=== PATIENT | male | born 1955 | race Caucasian/White ===

== ENCOUNTER 2017-04-11 17:17 | Emergency (ER) | payer OTHER ==
--- NOTE | 2017-04-11 17:34 | EDPHY ---
H & P Stated Complaint: sharp "picky" cp x 2 weeks Time Seen by Provider: 04/11/17 17:33 HPI/ROS: CHIEF COMPLAINT: Intermittent chest pain x2 weeks HISTORY OF PRESENT ILLNESS: The patient presents to the ED with intermittent chest pain for 2 weeks. Patient reports a sharp left-sided chest pain on his left anterior rib at a specific spot. The patient denies radiation of the pain to the neck, back, arm or abdomen. The patient is currently asymptomatic. The patient's symptoms are not precipitated by exertion. He denies any asymmetric calf pain or swelling. He currently is symptom free. The patient does have a history of hypertension. He has remote history of treated osteosarcoma. The patient denies any complaints of fever, cough or congestion. REVIEW OF SYSTEMS: A comprehensive 10 point review of systems is otherwise negative aside from elements mentioned in the history of present illness. Source: Patient - Personal History Current Tetanus/Diphtheria Vaccine: Yes Tetanus Vaccine Date: May 16 2014 - Medical/Surgical History Hx Asthma: No Hx Chronic Respiratory Disease: No Hx Diabetes: No Hx Cardiac Disease: No Hx Renal Disease: No Hx Cirrhosis: No Hx Alcoholism: No Hx HIV/AIDS: No Hx Splenectomy or Spleen Trauma: No Other PMH: LLE amputation, Bone CA, HTN - Social History Smoking Status: Never smoked - Physical Exam Exam: General Appearance: Alert, no distress Head: Atraumatic Eyes: Pupils equal, round, reactive ENT, Mouth: No hemotympanum, no oral trauma Neck: Nontender, trachea midline Respiratory: No chest wall tender, no subcutaneous air, lungs clear bilaterally Cardiovascular: Regular rate and rhythm Abdomen: Abdomen is soft and nontender, pelvis stable Skin: No lacerations, No abrasion Back: No midline T/L/S pain Extremities: 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 Neurological: A&Ox3, normal motor function, normal sensory exam Constitutional: Initial Vital Signs Temperature (C) 36.7 C 04/11/17 17:19 Heart Rate 78 04/11/17 17:19 Respiratory Rate 22 H 04/11/17 17:19 Blood Pressure 186/94 H 04/11/17 17:19 O2 Sat (%) 92 04/11/17 17:19 O2 Delivery Mode Room Air O2 (L/minute) 3 Allergies/Adverse Reactions: TAPE Allergy (Uncoded 04/11/17 17:18) Home Medications: Medication Instructions Recorded CRESTOR 01/11/10 Lisinopril 05/16/14 Medical Decision Making - Diagnostics EKG Interpretation: EKG: Complete interpretation has been separately recorded in the tribr archive. Summary impression: Sinus rhythm, no ST segment elevation or depression Imaging Results: Imaging Impressions Chest X-Ray 04/11/17 17:34 Impression: 1. Persistent Elevated left hemidiaphragm. 2. No definite pneumonia. 3. No pneumothorax. ED Course/Re-evaluation: The patient presents to the ED for evaluation of 2 weeks of intermittent sharp left-sided chest pain. The patient's symptoms typically lasts seconds at a time. They are nonexertional. The patient has no complaints of pleuritic chest pain or complaints of calf pain or swelling. The patient's EKG demonstrates no evidence of ischemia. His troponin is normal. The patient does have a history of hypertension is the sole risk factor for atherosclerosis. I have told the patient that my clinical suspicion for ACS is low. I have told him that I cannot fully eliminate the possibility of occult coronary artery disease. At this point time I do feel it would be reasonable to have him follow up with Cardiology in the next 3 days for consideration of stress test. I have told the patient to contact their office tomorrow to schedule a follow- up visit. I will have the patient begin a daily aspirin until cleared by Cardiology. The patient does understand return to the ED for or protracted chest pain, exertional chest pain, worsening symptoms or other concerns. Differential Diagnosis: Differential diagnosis considered includes musculoskeletal pain, pericarditis, myocarditis, acute coronary syndrome, rib fracture, pneumothorax - Data Points Laboratory Results: Laboratory Results 04/11/17 17:40 04/11/17 17:40 04/11/17 04/11/17 17:40 17:40 WBC 7.17 10^3/uL 10^3/uL (3.80-9.50) RBC 5.59 10^6/uL 10^6/uL (4.40-6.38) Hgb 16.3 g/dL g/dL (13.7-17.5) Hct 48.2 % % (40.0-51.0) MCV 86.2 fL fL (81.5-99.8) MCH 29.2 pg pg (27.9-34.1) MCHC 33.8 g/dL g/dL (32.4-36.7) RDW 13.0 % % (11.5-15.2) Plt Count 171 10^3/uL 10^3/uL (150-400) MPV 9.9 fL fL (8.7-11.7) Neut % (Auto) 50.2 % % (39.3-74.2) Lymph % (Auto) 37.1 % % (15.0-45.0) [place] % (Auto) 10.2 % % (4.5-13.0) Eos % (Auto) 1.8 % % (0.6-7.6) Baso % (Auto) 0.4 % % (0.3-1.7) Nucleat RBC Rel Count 0.0 % % (0.0-0.2) Absolute Neuts (auto) 3.60 10^3/uL 10^3/uL (1.70-6.50) Absolute Lymphs (auto) 2.66 10^3/uL 10^3/uL (1.00-3.00) Absolute Monos (auto) 0.73 10^3/uL 10^3/uL (0.30-0.80) Absolute Eos (auto) 0.13 10^3/uL 10^3/uL (0.03-0.40) Absolute Basos (auto) 0.03 10^3/uL 10^3/uL (0.02-0.10) Absolute Nucleated RBC 0.00 10^3/uL 10^3/uL (0-0.01) Immature Gran % 0.3 % % (0.0-1.1) Immature Gran # 0.02 10^3/uL 10^3/uL (0.00-0.10) Sodium 136 mEq/L mEq/L (134-144) Potassium 4.2 mEq/L mEq/L (3.5-5.2) Chloride 100 mEq/L mEq/L (97-110) Carbon Dioxide 25 mEq/l mEq/l (22-31) Anion Gap 11 mEq/L mEq/L (8-16) BUN 18 mg/dL mg/dL (7-23) Creatinine 1.0 mg/dL mg/dL (0.7-1.3) Estimated GFR > 60 Glucose 96 mg/dL mg/dL (70-100) Calcium 9.3 mg/dL mg/dL (8.5-10.4) Troponin I < 0.012 ng/mL ng/mL (0.000-0.034) Departure - Departure Disposition: Home, Routine, Self-Care Clinical Impression: Chest pain Condition: Good Instructions: Chest Pain (ED) Additional Instructions: 1. Based upon the testing done in the Emergency Department today we see no evidence of a heart attack. 2. We are unable to fully exclude coronary artery disease based upon the testing available in the Emergency Department. 3. For this reason, we would like you to be seen by cardiology for consideration of additional testing within the next 3 days. 4. Please contact the bridge instructor you have been referred to schedule this appointment as soon as possible. Their offices are typically open from 8:30am- 5pm M-F. 5. Please return to the Emergency Department immediately for any recurrent chest pain, difficulty breathing or other concerns. 6. Please begin taking a 81 mg aspirin a day until evaluated by Cardiology. Referrals: Harley Gregory MD [Primary Care Provider] - As per Instructions Neal Yusuf MD [Medical Doctor] - As per Instructions
--- NOTE | 2017-04-11 17:34 | CPEKG ---
Heart Rate: 73 RR Interval: 822 P-R Interval: 200 QRSD Interval: 86 QT Interval: 392 QTC Interval: 432 P [place]: 40 QRS [place]: 58 T Wave [place]: 57 EKG Severity - NORMAL ECG - EKG Impression: SINUS RHYTHM Electronically Signed By: Guru North 11-Apr-2017 17:59:51
[2017-04-11 17:56] LABS: % IMMATURE GRANULYOCYTES 0.3 % (0.0-1.1); ABSOLUTE IMMATURE GRANULOCYTES 0.02 10^3/uL (0.00-0.10); ADD DIFF? NO; ADD MORPH? NO; ADD SCAN? NO; ATYPICAL LYMPHOCYTE FLAG 10 (0-99); FRAGMENT RBC FLAG 0 (0-99); HEMATOCRIT 48.2 % (40.0-51.0); HEMOGLOBIN 16.3 g/dL (13.7-17.5); LEFT SHIFT FLG 0 (0-99); LIPEMIA HEMOLYSIS FLAG 90 (0-99); MEAN CELL HEMOGLOBIN 29.2 pg (27.9-34.1); MEAN CELL HEMOGLOBIN CONCENTR. 33.8 g/dL (32.4-36.7); MEAN CELL VOLUME 86.2 fL (81.5-99.8); MEAN PLATELET VOLUME 9.9 fL (8.7-11.7); PLATELET CLUMPS FLAG 20 (0-99); PLATELET COUNT 171 10^3/uL (150-400); RED BLOOD CELL COUNT 5.59 10^6/uL (4.40-6.38)
[2017-04-11 18:05] LABS: ANION GAP 11 mEq/L (8-16); CALCIUM 9.3 mg/dL (8.5-10.4); CARBON DIOXIDE 25 mEq/l (22-31); CHLORIDE 100 mEq/L (97-110); GLOMERULAR FILTRATION RATE > 60; GLUCOSE 96 mg/dL (70-100); POTASSIUM 4.2 mEq/L (3.5-5.2); SODIUM 136 mEq/L (134-144)
[2017-04-11 18:17] LABS: TROPONIN I < 0.012 ng/mL (0.000-0.034)
[2017-04-11 19:19] VITALS: BP 117/60; PULSE 71; RESP 16; TEMP 98.4; O2SAT 92
== END 2017-04-11 19:15 | disposition home or self-care (01) ==
DX: R07.9 Chest pain, unspecified (principal); I10 Essential (primary) hypertension; Z85.830 Personal history of malignant neoplasm of bone